=== PATIENT | female | born 1990 | race Caucasian/White ===

== ENCOUNTER → 2024-04-08 09:45 | Outpatient (REF) | payer OTHER, SELFPAY | LOC: RAD 09:45 | PROVIDERS: ATTENDING PHYSICIAN Nurse Practitioner Family | DX: R05.1 Acute cough (principal) | CPT/HCPCS: 71046 ==

== ENCOUNTER 2024-07-28 10:01 | Emergency (ER) | payer OTHER, SELFPAY ==
[2024-07-28 10:13] VITALS: BP 112/78
--- NOTE | 2024-07-28 11:07 | ED.GENMED ---
History of Present Illness
General
Chief Complaint: Headache
Source: patient
Time Seen by Provider: 07/28/24 10:44
History of Present Illness
History of Present Illness:
34-year-old female with no significant past medical history presenting to the emergency department for evaluation of a right-sided postauricular pain that she has been experiencing since Sunday morning upon awakening describing the pain to be
waxing and waning, sharp and intense when it does occur, lasting for approximately only a few seconds at a time and then resolves but is occurring usually every 1 to 2 minutes. Patient states that [facility] and was
diagnosed with possible shingles and started on medication for this but reports no improvement of symptoms. Patient has no other symptoms presently and is otherwise denying any visual changes, focal weakness or numbness, neck pain, fevers or
infectious symptoms, rashes, body aches. Patient states that she has had a migraine before but states this does feel little bit. Notes that on Sunday she had been drinking a little bit more caffeine than usual which she thought may have been
related so did not drink anything yesterday but states that she did not notice any change in her symptoms. Patient did not take anything for her pain prior to arrival.
Past History
Past History
ED Past Medical History: Asthma and Other (Allergic rhinitis, prior concussions)
ED Past Surgical History: Other ([place] teeth removal)
Social History
Tobacco: Non-smoker
Alcohol: Occasional
Drug: None
Personal: Single
Living: with roommate (At [facility])
Employment: Employed (Patient is a [employer])
Family History
Family History: Other (Maternal uncle has kidney stones); Negative Diabetes
Review of Systems
Review of Systems
All Other Systems: ROS reviewed and negative except as documented in HPI and ROS
Phy Exam
Physical Exam
Physical Exam:
GENERAL: Alert , in no apparent distress but does intermittently appear uncomfortable when she is experiencing the pain
EYE: pupils equal and reactive, 4mm bilateral, EOMI
NECK: Supple, no significant adenopathy. FROM, no meningismus
ENT: o/p clr, mmm. TM clear bilateral
NEUROLOGICAL: Alert and oriented, no focal neuro deficits, ambulates with steady gait
SKIN: Warm and dry, skin intact.
MUSCULOSKELETAL: well perfused.
PSYCH: Normal and appropriate interaction.
Scores
Heart Failure Risk
Heart Failure Risk Score: Not Applicable
Heart Score for Chest Pain Patients
STEMI patient?: Not applicable
Withdrawal Assessment of Alcohol
Withdrawal Assessment Completed?: Not applicable
Course
Orders/Labs/Results
Orders:
Orders
07/28/24 11:03
Dexamethasone Sod Phosphate [Decadron] 10 mg IV NOW STA
Diphenhydramine [Benadryl] 25 mg IV NOW STA
Metoclopramide [Reglan] 10 mg IV NOW STA
07/28/24 11:16
Complete Blood Count/With Diff Urgent
Comprehensive Metabolic Panel Urgent
Lyme Progressive Urgent
Abnormal Lab Results
07/28/24
11:16
WBC 4.4 L 10^3/uL
(4.8-10.8)
RBC 4.02 L 10^6/uL
(4.20-5.40)
Monocytes % 10.9 H %
(1.7-9.3)
Chloride 108 H mmol/L
(98-107)
Alkaline Phosphatase 35 L U/L
(38-126)
07/28/24 11:16
07/28/24 11:16
Vital Signs
Initial and Last Documented VS:
Initial Vital Signs
Temp Pulse Resp BP Pulse Ox
98.0 F 83 16 112/78 98
07/28/24 10:13 07/28/24 10:13 07/28/24 10:13 07/28/24 10:13 07/28/24 10:13
Last Documented Vital Signs
Temp Pulse Resp BP Pulse Ox
98.0 F 71 18 93/61 99
07/28/24 10:13 07/28/24 12:18 07/28/24 12:18 07/28/24 12:18 07/28/24 12:18
MDM/Problems Addressed
Differential Diagnosis Includes:
occipital neuralgia, TMJ, tension headache, migraine headache, cluster headache, ICH, vascular pathology, given age I do not have concern for GCA
MDM/Problems Addressed:
34-year-old female presenting to the emergency department for evaluation of persistent sharp bursts of pain that lasted only a few seconds and then resolved behind the right ear. No exacerbating or alleviating factors. No fevers or infectious
symptoms. No history of similar. Physical exam reassuring. Will check labs and treat with headache cocktail. Discussed risk versus benefit of imaging and patient ultimately decided she wanted to forego CT imaging of the head at this time.
Reassessment following.
*Pulse Oximetry
Patient hypoxic: no
*Critical Care Note
Total Time (30-74mins, 75-104mins- exclusive of procedures): Not Applicable
Patient Management
Escalation/DeEscalation of care consider admission/obs:
Patient's labs reveal a very mild leukopenia which could be related to a viral etiology. Patient notes that she is feeling better with medication. Feels comfortable being discharged home. Will follow-up with primary care provider as needed.
Aware of return precautions to the ER.
ED Attending Note
-
Portions of this chart may have been created with voice recognition software.� Occasional wrong word or��sound alike� substitutions may have occurred due to the inherent limitations of voice recognition software.
Discharge Plan
Departure
Patient Disposition: Home (Routine Discharge)
Date of Disposition: 07/28/24
Time of Disposition: 12:07
Patient with high blood pressure during this ER visit?: No
Discharge Problem:
Posterior auricular pain of right ear
Instructions: Headache, Adult (DC)
Prescriptions:
No Action
No Current Medications
0
Referrals:
NONE,* [Family Provider] -
Interventions
Interventions:
*Risk Screen - Suicide Last Done: 07/28/24 10:13
*General Assessment Last Done: 07/28/24 12:19
*Neglect/Abuse Screening Last Done: 07/28/24 10:13
ED- Fall Risk Assessment Last Done: 07/28/24 12:19
*ED COVID-19 Vaccine History Last Done: 07/28/24 12:19
*Nursing Disposition Last Done: 07/28/24 12:18
ED- Neurological Assessment Last Done: 07/28/24 12:19
Discharge Date and Time
Discharge Date/Time: 07/28/24 12:20
Print Language: TURKISH
[2024-07-28] MEDS: DECADRON 10 MG IV (11:19)
[2024-07-28] MEDS: REGLAN 10 MG IV (11:19)
[2024-07-28] MEDS: BENADRYL 25 MG IV (11:19)
[2024-07-28 11:26] LABS: % Basophils 1.4 % (0-2); % Eosinophils 2.9 % (0-6); % Immature Granulocytes 0.5 % (0-0.5); % Lymphocytes 35.4 % (20.5-51.1); % Monocytes 10.9 % (1.7-9.3); % Neutrophils 48.9 % (42.2-75.2); Absolute Basophils 0.1 10^3/uL (0-0.2); Absolute Eosinophils 0.1 10^3/uL (0-0.7); Absolute Lymphocytes 1.6 10^3/uL (1.2-3.4); Absolute Monocytes 0.5 10^3/uL (0.1-0.6); Absolute Neutrophils 2.2 10^3/uL (1.4-6.5); Hematocrit 37.3 % (37.0-47.0); Hemoglobin 12.3 g/dL (12.0-16.0); Mean Corpuscular Hgb 30.6 pg (27.0-31.0); Mean Corpuscular Volume 92.8 fL (81.0-99.0); Mean Platelet Volume 9.7 fL (7.4-10.4); Nucleated Red Blood Cells % 0 %; Platelet Count 267 10^3/uL (130-400); Red Blood Cell Count 4.02 10^6/uL (4.20-5.40); Red Cell Dist. Width 13.7 % (11.5-14.5); White Blood Cell Count 4.4 10^3/uL (4.8-10.8)
[2024-07-28 11:45] LABS: ALT (SGPT) 17 U/L (0-35); AST (SGOT) 22 U/L (14-36); Albumin 3.9 g/dl (3.5-5.0); Alkaline Phosphatase 35 U/L (38-126); Blood Urea Nitrogen 16 mg/dl (7-17); Carbon Dioxide 25 mmol/L (22-30); Chloride 108 mmol/L (98-107); Glucose 83 mg/dl (70-99); Potassium 4.8 mmol/L (3.5-5.1); Sodium 143 mmol/L (135-145); Total Bilirubin 0.4 mg/dl (0.2-1.3); Total Protein 6.5 g/dl (6.3-8.2); eGFR > 60.00
[2024-07-28 12:18] VITALS: BP 93/61
[2024-07-28 15:41] LABS: Lyme Antibody Screen, EIA Negative (Negative)
== END 2024-07-28 12:20 | disposition home or self-care (01) ==
LOC: EMR 10:01
PROVIDERS: Physician Assistant Medical; EMERGENCY PHYSICIAN Emergency Medicine
DX: H92.01 Otalgia, right ear (principal)
CPT/HCPCS: 99284; 96374; 96375; 80053; 85025; 86618

== ENCOUNTER → 2024-10-09 09:51 | Outpatient (REF) | payer OTHER, SELFPAY | LOC: UCDH 09:51 | PROVIDERS: ATTENDING PHYSICIAN Emergency Medicine | DX: J40 Bronchitis, not specified as acute or chronic (principal) | CPT/HCPCS: 71046 ==

== ENCOUNTER 2024-11-07 13:22 | Emergency (ER) | payer SELFPAY ==
[2024-11-07 13:29] VITALS: BP 124/81
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
[2024-11-07] MEDS: OCUFLOX 2 DROP OPHTH (14:49)
[2024-11-07 14:52] LABS: Hepatitis B Surface Antigen Negative (Negative)
[2024-11-07 15:10] LABS: Hepatitis B Surface Antibody Positive; Hepatitis C Antibody Negative (Negative)
[2024-11-07 17:54] LABS: HIV Combo Negative (Negative)
== END 2024-11-07 15:02 | disposition home or self-care (01) ==
LOC: EMR 13:22
PROVIDERS: Physician Assistant; EMERGENCY PHYSICIAN Emergency Medicine
DX: Z77.21 Contact with and (suspected) exposure to potentially hazardous body fluids (principal); Y08.89XA Assault by other specified means, initial encounter; Y99.0 Civilian activity done for income or pay; J45.909 Unspecified asthma, uncomplicated
CPT/HCPCS: 99283; 86706; 86803; 87340; 87389